=== PATIENT | male | born 1990 ===

== ENCOUNTER 2018-07-28 03:27 | Emergency (ER) | payer SELFPAY ==
--- NOTE | 2018-07-28 03:42 | C.PDOC ---
History Of Present Illness 28 year old male is brought to the ED by EMS for alcohol intoxication. Patient admits to drinking alcohol today. Patient denies Si/HI, hallucinations, other medical complaints. Chief Complaint (Nursing): Substance Abuse History Per: Patient, EMS History/Exam Limitations: intoxication Onset/Duration Of Symptoms: Hrs Current Symptoms Are (Timing): Still Present Suicide/Self Injury Attempted (Context): None Modifying Factor(s): Alcohol Associated Symptoms: denies: Depression, Suicidal Thoughts, Suicidal Plan Additional History Per: Patient, EMS Past Medical History Reviewed: Historical Data, Nursing Documentation, Vital Signs Vital Signs: Last Vital Signs Temp 98.5 F 07/28/18 03:30 Pulse 67 07/28/18 03:30 Resp 20 07/28/18 03:30 BP 111/73 07/28/18 03:30 Pulse Ox 99 07/28/18 03:30 - Medical History PMH: No Chronic Diseases Surgical History: No Surg Hx Family History: States: Unknown Family Hx - Social History Hx Alcohol Use: Yes Hx Substance Use: No - Immunization History Hx Tetanus Toxoid Vaccination: No Hx Influenza Vaccination: No Hx Pneumococcal Vaccination: No Review Of Systems Constitutional: Negative for: Fever, Chills Cardiovascular: Negative for: Chest Pain Respiratory: Negative for: Shortness of Breath Gastrointestinal: Negative for: Nausea, Vomiting, Abdominal Pain Skin: Negative for: Rash Psych: Negative for: Depression, Suicidal ideation Physical Exam - Physical Exam Appears: Non-toxic, No Acute Distress Skin: Normal Color, Warm, Dry Head: Atraumatic, Normacephalic Eye(s): bilateral: Normal Inspection Neck: Normal ROM, Supple Chest: Symmetrical Cardiovascular: Rhythm Regular Respiratory: Normal Breath Sounds, No Rales, No Rhonchi, No Wheezing Extremity: Normal ROM, No Tenderness, No Swelling Neurological/Psych: Oriented x3, Normal Speech, Normal Cognition Gait: Steady ED Course And Treatment O2 Sat by Pulse Oximetry: 99 (On RA) Pulse Ox Interpretation: Normal Disposition Counseled Patient/Family Regarding: Diagnosis - Disposition Referrals: [facility] [Outside] Disposition: HOME/ ROUTINE Disposition Time: 05:47 Condition: STABLE Instructions: Alcohol Abuse and Alcoholism (DC) Forms: [facility] (Malay), Gen Discharge Inst Latvian Print Language: OCCITAN - POA Present On Arrival: None - Clinical Impression Clinical Impression: Alcohol intoxication - Scribe Statement The provider has reviewed the documentation as recorded by the Scribjosue Gonzales All medical record entries made by the Rupertoibjosue were at my direction and personally dictated by me. I have reviewed the chart and agree that the record accurately reflects my personal performance of the history, physical exam, me dical decision making, and the department course for this patient. I have also personally directed, reviewed, and agree with the discharge instructions and disposition.
[2018-07-28 03:53] VITALS: O2SAT 99
[2018-07-28 05:32] VITALS: BP 135/94; PULSE 84; RESP 16; TEMP 97.8
== END 2018-07-28 06:01 | disposition home or self-care (01) ==
LOC: C.ER 03:27
DX: F10.129 Alcohol abuse with intoxication, unspecified (principal); Y90.9 Presence of alcohol in blood, level not specified